=== PATIENT | male | born 1980 | race Two or more races ===

== ENCOUNTER 2021-12-16 10:36 | Emergency (ER) | payer OTHER ==
[2021-12-16 11:42] LABS: ESTIMATED GFR 97 mL/min (>60)
[2021-12-16 12:57] LABS: HEMOGLOBIN A1C 5.8 % (<5.7)
== END 2021-12-16 13:32 | disposition home or self-care (01) ==
LOC: FB.ED 10:36
DX: E78.5 Hyperlipidemia, unspecified (principal); I10 Essential (primary) hypertension; E78.00 Pure hypercholesterolemia, unspecified; F17.210 Nicotine dependence, cigarettes, uncomplicated; Z79.899 Other long term (current) drug therapy
CPT/HCPCS: 36415; 80053; 81001; 82947; 83036; 85025; 99283